=== PATIENT | female | born 2000 | race Two or more races ===

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

== ENCOUNTER 2023-05-30 15:02 | Emergency (ER) | payer OTHER ==
[~2023-05-30] VITALS: Ht 152.4 cm; Wt 49.9 kg
[~2023-05-30 15:02] MED LIST: PERCOCET 5-3251 EACH PO
[2023-05-30 17:10] LABS: HEMATOCRIT 36.8 % (36.0-45.00); HEMOGLOBIN 12.5 g/dL (12.0-15.00); MEAN CELL VOLUME 77.7 fL (80.00-100.00); MEAN CORPUSCULAR HEMOGLOBIN 26.5 pg (27.00-32.0); PLATELET COUNT 312 K/uL (150-450); RED BLOOD COUNT 4.74 M/uL (4.00-6.00); RED CELL DISTRIBUTION WIDTH 16.1 % (11.5-14.5)
[2023-05-30 17:12] LABS: URINE APPEARANCE Turbid; URINE BILIRRUBIN Negative (NEGATIVE); URINE BLOOD Moderate; URINE COLOR Yellow; URINE GLUCOSE Negative (NEGATIVE); URINE LEUKOCYTE Negative; URINE NITRATE Negative; URINE PROTEIN Negative (NEGATIVE); URINE UROBILINOGEN 0.2 E.U./dl
[2023-05-30 17:16] LABS: URINE BACTERIA 47.8 uL (0.0-1933); URINE EPITHELIAL CELLS 7.2 uL (0.0-38.8); URINE WBC 2.4 uL (0.0-23.2)
[2023-05-30 17:27] LABS: INR 1.05; PARTIAL THROMBOPLASTIN TIME 29.2 SECONDS (22.0-34.0)
[2023-05-30 17:59] LABS: CALCIUM 8.9 mg/dL (8.5-10.1); CREATININE SERUM 0.67 mg/dL (0.55-1.02); GFR 110.06; POTASSIUM 3.51 mEq/L (3.5-5.1)
== END 2023-05-30 20:32 ==
LOC: ER 15:02
PROVIDERS: Nurse Practitioner Family
DX: N93.8 Other specified abnormal uterine and vaginal bleeding (principal); N80.8 Other endometriosis